=== PATIENT | female | born 1950 | race Caucasian/White ===

== ENCOUNTER 2017-09-12 16:19 | Emergency (ER) | payer MEDICARE, OTHER ==
[~2017-09-12] VITALS: Ht 152.4 cm; Wt 48.1 kg
[~2017-09-12 16:19] MED LIST: ASPIR 8181 MG PO; ASPIRIN81 MG PO; DIALYVITE PO; DICLOFENAC SODI75 MG PO; EPOGEN20000 UNIT INJ; IRON PO; KETOPROFEN50 MG PO; LISINOPRIL10 MG PO; NORCO 7.5-3251 EACH PO; SODIUM BICARBO650 MG PO; TYLENOL
--- NOTE | 2017-09-12 18:24 | Diagnostic Imaging Report ---
PROCEDURE:X-RAY LUMBAR SPINE, TWO VIEWS COMPARISON:None available. INDICATIONS:FALL FINDINGS: There are 5 lumbar-type vertebral bodies. The vertebral bodies are well-aligned without evidence of spondylolisthesis. Vertebral body heights are maintained. There are no fractures, lytic or blastic lesions. Multilevel degenerative changes, most notable at L2-L3 and L3-L4. Vascular calcifications. Surgical clips overlying right upper quadrant likely from cholecystectomy. There also multiple surgical clips overlying left abdomen. CONCLUSION: No acute abnormality. Multilevel degenerative changes. Dictated by: Leo Yates M.D. on 09/12/2017 at 18:33 Electronically approved by: Leo Yates M.D. on 09/12/2017 at 18:33
--- NOTE | 2017-09-12 18:25 | Diagnostic Imaging Report ---
PROCEDURE: A single AP view of the chest. COMPARISON: 01/28/17 INDICATIONS: FALL FINDINGS: Lines/tubes: None. Lungs: The lungs are well inflated and clear. There is no evidence of pneumonia or pulmonary edema. Pleura: There is no pleural effusion or pneumothorax. Heart and mediastinum: The heart and the mediastinum are unremarkable. Bones: No acute bony abnormality. IMPRESSION: 1. No acute cardiopulmonary disease. Dictated by: Leo Yates M.D. on 09/12/2017 at 18:34 Electronically approved by: Leo Yates M.D. on 09/12/2017 at 18:34
--- NOTE | 2017-09-12 18:44 | Diagnostic Imaging Report ---
EXAMINATION: Head and cervical spine CT without contrast. HISTORY: Status post fall today, head and neck pain, left-sided numbness COMPARISON: None. TECHNIQUE: Multidetector axial images were obtained without contrast from the foramen magnum to the vertex and through the cervical spine. The images were reconstructed using brain and bone algorithms. Thin section brain images were reformatted into coronal and sagittal planes. HEAD CT FINDINGS: Skull: No lytic or blastic lesions. No fractures. Parenchyma: Scattered and mildly confluent periventricular white matter hypodensities, most likely nonspecific chronic microvascular ischemic changes. 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 No mass, hemorrhage or CT evidence of acute vascular insult. Brain volume: Normal for age. Ventricles: No hydrocephalus or displacement. Small calcification within the fourth ventricle, and also see hydrocephalus, may represent sequela from remote trauma or infection. Arteries: No density suggestive of thrombus. Dural sinuses: No abnormal density. Extra-axial spaces: No abnormal density. Foramen magnum: No mass, Chiari malformation, or basilar invagination. Sella: No obvious mass. Paranasal/mastoid sinuses: Imaged portions unremarkable. CERVICAL SPINE CT FINDINGS: Alignment:Normal alignment and lordosis. Soft tissues: Approximately 1 cm hypoattenuating nodule in the right lobe of the thyroid gland.. Vertebrae: Normal height and density. No acute fracture, infection or neoplasm. Intervertebral disk degenerative changes: C4-C5: Disc osteophyte, uncovertebral and facet arthrosis. Moderate right foraminal stenoses.. C5-C6: Discussed by complex formation, bilateral uncovertebral and facet arthrosis. Mild right and moderate left foraminal stenosis. Minimal canal narrowing.. IMPRESSION: Head CT: 1. No acute posttraumatic intracranial abnormalities, particularly no hemorrhage 2. Mild chronic microvascular ischemic changes. Chronic lacunar in first in the right basal ganglia. Cervical spine CT: 1. No acute fractures or dislocations. 2. Mild chronic degenerative changes as detailed above Note: Acute postraumatic spinal cord, vascular or ligamentous injuries cannot be excluded on the basis of the current examination. Signed by: Dr. Sue Artis M.D. on 09/12/2017 6:41 PM
== END 2017-09-12 19:11 | disposition short-term general hospital (02) ==
LOC: ER 16:19
DX: Z53.21 Procedure and treatment not carried out due to patient leaving prior to being seen by health care provider (principal)
CPT/HCPCS: 70450; 71010; 72100; 72125